=== PATIENT | male | born 1950 | race African-American/Black ===

== ENCOUNTER 2022-01-22 09:41 | Emergency (ER) | payer OTHER, MEDICAID ==
[~2022-01-22] VITALS: Ht 188 cm; Wt 110.0 kg
[2022-01-22 09:51] VITALS: BP 127/64
[2022-01-22 10:09] LABS: BASOPHILS % 0.4 % (0.0-2.0); EOSINOPHILS % 4.1 % (0.0-5.0); HEMATOCRIT. 34.6 % (42.0-52.0); HEMOGLOBIN. 11.1 g/dL (14.0-18.0); LYMPHOCYTES % 31.2 % (20.0-50.0); MEAN CORPUSCULAR HEMOGLOBIN 25.2 pg (28.0-32.0); MEAN CORPUSCULAR VOLUME 78.1 fL (80.0-94.0); MEAN PLATELET VOLUME 8.8 fl (7.4-10.4); MONOCYTES % 8.8 % (2.0-8.0); NEUTROPHILS % 55.5 % (40.0-76.0); PLATELET 237 x1000/uL (130-400); RED BLOOD CELL COUNT 4.43 mill/uL (4.7-6.1); RED CELL DISTRIBUTION WIDTH 13.7 % (11.6-14.6)
[2022-01-22 10:13] LABS: CHLORIDE 113 mEq/L (98-107)
== END 2022-01-22 11:18 | disposition home or self-care (01) ==
LOC: ER 09:41 → CANBEDREQ 01-23 09:18
DX: R42 Dizziness and giddiness (principal); R94.31 Abnormal electrocardiogram [ECG] [EKG]; R79.89 Other specified abnormal findings of blood chemistry; I10 Essential (primary) hypertension; E11.9 Type 2 diabetes mellitus without complications
CPT/HCPCS: 36415; 71045; 80053; 83880; 84484; 85025; 93005; 99285

== ENCOUNTER 2022-06-07 11:40 | Emergency (ER) | payer OTHER, MEDICAID ==
[~2022-06-07] VITALS: Ht 175.3 cm; Wt 88.0 kg
[2022-06-07 11:52] VITALS: BP 102/54
== END 2022-06-07 12:23 | disposition left against medical advice (07) ==
LOC: ER 11:40
DX: Z53.21 Procedure and treatment not carried out due to patient leaving prior to being seen by health care provider (principal); R53.1 Weakness
CPT/HCPCS: 93005; 99281

== ENCOUNTER 2024-12-28 08:34 | Emergency (ER) | payer OTHER, MEDICAID ==
[~2024-12-28] VITALS: Ht 172.7 cm; Wt 100.0 kg
[2024-12-28 08:36] VITALS: O2SAT 99
[2024-12-28 09:03] VITALS: TEMP 36.6
[2024-12-28 09:07] LABS: BASOPHILS % 0.8 % (0.0-2.0); EOSINOPHILS % 3.9 % (0.0-5.0); HEMATOCRIT. 33.8 % (42.0-52.0); HEMOGLOBIN. 10.8 g/dL (14.0-18.0); LYMPHOCYTES % 27.5 % (20.0-50.0); MEAN PLATELET VOLUME 8.7 fl (7.4-10.4); MONOCYTES % 8.5 % (2.0-8.0); NEUTROPHILS % 59.3 % (40.0-76.0); PLATELET 200 x1000/uL (130-400); RED BLOOD CELL COUNT 4.49 mill/uL (4.7-6.1); RED CELL DISTRIBUTION WIDTH 16.1 % (11.6-14.6)
[2024-12-28] MEDS: SODIUM CHLORIDE 0.9% 1,000 ML IV ONE (09:12)
[2024-12-28 09:23] LABS: CREATININE 3.0 mg/dL (0.6-1.3); UREA NITROGEN BLOOD 29 mg/dL (9-23)
[2024-12-28 09:24] LABS: TROPONIN I HIGH SENSITIVITY 27 ng/L (3.0-53)
[2024-12-28 09:25] LABS: ASPARTATE AMINOTRANSFERASE 20 IU/L (<34); BILIRUBIN DIRECT < 0.1 mg/dL (<=3.0)
[2024-12-28 09:26] LABS: BILIRUBIN TOTAL < 0.2 mg/dL (0.1-1.0); PROTEIN TOTAL 7.6 g/dL (6.0-8.3)
[2024-12-28 10:31] VITALS: BP 128/70; PULSE 75; RESP 15; TEMP 97.88
== END 2024-12-28 10:42 | disposition left against medical advice (07) ==
LOC: ER 08:34
DX: R55 Syncope and collapse (principal); E11.9 Type 2 diabetes mellitus without complications; E78.00 Pure hypercholesterolemia, unspecified; I10 Essential (primary) hypertension; Z86.73 Personal history of transient ischemic attack (TIA), and cerebral infarction without residual deficits; Z55.6 Problems related to health literacy
CPT/HCPCS: 99284; 96360; 71045; 80076; 80048; 83880; 85025; 85379; 84484; 36415; J7030; 99285